=== PATIENT | male | born 1955 ===

== ENCOUNTER 2018-05-22 14:27 | Outpatient (CLI) | payer OTHER ==
[~2018-05-22 14:27] MED LIST: Iopamidol 370 76% 100 ML VIAL ONE
== END 2018-05-22 14:28 | disposition home or self-care (01) ==
LOC: BICCT 14:27
PROVIDERS: ATTEND Family Medicine
DX: R10.84 Generalized abdominal pain (principal); R19.7 Diarrhea, unspecified; K57.30 Diverticulosis of large intestine without perforation or abscess without bleeding; N40.0 Benign prostatic hyperplasia without lower urinary tract symptoms
CPT/HCPCS: 74177; 82565